=== PATIENT | female | born 1990 | race Caucasian/White ===

== ENCOUNTER 2020-05-27 21:43 | Inpatient (IN) ==
[2020-05-27] MEDS ORDERED: LACTATED RINGER'S 500 ML IV ONE (22:20)
[2020-05-27] MEDS ORDERED: METOCLOPRAMIDE HCL INJ 5 MG/ML 2 ML VIAL IV STA (22:20)
--- NOTE | 2020-05-27 22:37 | Obstetrical Progress Note ---
Date of Service May 27, 2020 Assessment & Plan (1) : 30 y/o G1 at 40 3/7 wga presenting for r/o PET -initial BP was 150 however have been normotensive otherwise. Will get PET labs and give IVF/reglan, too soon for more tylenol -cat 1 tracing currently -reassess following return of labs Subjective 30 y/o G1 at 40 3/7 wga w/ JANIS 05/24 by first trimester US who presents w/ c/o of MAK and blurry vision. Reports having blurry vision that began around 230pm, subsequently began having headache that feels similar to migraines about 1 hour later. Took 2 extra strength tylenol this afternoon and around 730 this evening, but is still w/o relief. Normally HAs improve with tylenol. Denies CP, SOB, RUQ/epigastric pain. +FM and intermittent tightening, no LOF or VB. Had little bit of mucous discharge yesterday but had cervix checked the day before and none since. Notes that she has been drinking gatorade and propel a lot throughout the day. Had 1 documented mild range BP on the day that she was seen in clinic w/ COVID precautions and normal repeat. BPs have been normal in otherwise. Pt states she checked her BP after MAK episode a few weeks ago and it was elevated but when she was seen in clinic the day after it was 130s/80s PNI: 1. COVID+ 04/19, now >20 days out 2. 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 4. GBS+ Physical Exam Constitutional: WD/WN, vitals as above no acute distress Respiratory: normal respiratory effort; no respiratory distress and no labored breathing Gastrointestinal (Abdomen): Percussion/Palpation: abdomen soft; abdomen nontender and no guarding Genitourinary: Manual OB Exam: + cervical dilation (2.5), + cervical effacement 70% and + station -2 OB Exam Monitor Tracing: + external FHT monitor used, + external uterine monitor used (q9min apart) and + category I (145/mod/+accel/-decel) Results & Data ([facility]) Vital Signs (Past 12 Hours) Vital Signs Temp Pulse Resp BP 05/27/20 22:19 90 136/78 05/27/20 22:04 99.9 F H 106 H 18 125/81 05/27/20 21:57 99.9 F H 111 H 18 152/86 H PG Care Time/CCT Total # of Minutes Spent Total Time Spent with Patient: Total time spent is greater than 50% in coordination of care (as documented) at patient's floor/unit and/or counseling patient: Coding Level of Care Code None Diagnoses Z34.90
[2020-05-27 23:08] LABS: Hematocrit (blood only) 36.3 % (37-47); Hemoglobin 11.6 g/dL (12.0-16.0); Mean Corpuscular Hemoglobin 25.8 pg (25-34); Mean Corpuscular Volume 80.7 fL (80-100); Mean Platelet Volume 10.5 fL (7.4-10.4); Platelet Count 216 K/uL (130-400); RDW Coefficient of Variation 15.8 % (11.5-14.5); RDW Standard Deviation 46.1 fL (36.4-46.3); White Blood Count 10.59 K/uL (4.8-10.8)
[2020-05-27 23:21] LABS: Total Protein Urine Random < 5.0 mg/dl (0-11.9)
[2020-05-27 23:28] LABS: Albumin Level 2.6 gm/dl (3.4-5.0); BUN Creatinine Ratio 10.1 (10-20); Creatinine Clr Calc Pharmacy 128.5 ml/min; Est GFR (African American) 127.8; Est GFR (Non-African American) 110.3; Potassium 3.6 mmol/L (3.5-5.1)
[2020-05-27 23:31] LABS: Albumin Globulin Ratio 0.6 (0.9-2); Bilirubin,Total 0.2 mg/dl (0.2-1); Globulin 4.5 gm/dl (2.5-4.0); Total Protein 7.1 gm/dl (6.4-8.2)
[2020-05-28] MEDS ORDERED: OXYTOCIN 30 UNITS/500 ML BAG IV PRN ×3 (00:02→18:14)
--- NOTE | 2020-05-28 00:19 | History & Physical Report ---
Date of Service May 28, 2020 Assessment & Plan (1) : 30 y/o G1 at 40 4/7 wga presenting with intermittently elevated BPs, 40+ wks. Given GA and elevations, recommend IOL at this time. 1. VSS, normal to intermittent mild range BPs, continue to monitor. 2. Fetus cat 1 3. IOL - will begin with oxytocin 4. GBS+, clindamycin sensitive 5. Epidural PRN History of Present Illness Primary Care Provider: NO PCP 30 y/o G1 at 40 4/7 wga w/ JANIS 05/24/20 by 1st [facility] who is admitted for IOL. Initially presented due to MAK and blurry vision. No other s/s PET; +FM; denies ctx, LOF, VB. PET labs were obtained and wnl including UPC. Reglan and IVF were administered and MAK and blurry vision resolved. 1st BP on arrival to L&D after sitting for 5-10 min was 150 and normalized after, however was noted to have a few 140s with normals after. Pt also notes that she had an episode of a MAK last week where she had BP checked and said it was in the 150s. Does not meet criteria for gHTN at this point, but given 40+ wks and intermittently elevated BPs, discussed and recommended IOL. Pt amenable to plan PNI: 1. COVID+ 04/19, now >20 days out 2. 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 4. GBS+ Past [employer] Hx: G1 Menarche 14, periods regular q30+ days no hx STIs, no hx abnl paps Allergies Allergy/AdvReac Type Severity Reaction Status Date / Time Penicillins Allergy unknown Verified 05/25/20 15:43 Home Medications Medication Instructions Recorded Confirmed Type prenat.vits,kenan,[id number] 1 tab PO DAILY 11/11/19 05/27/20 History Patient History Medical History Chicken pox Encounter for anatomic survey Surgical History S/P wisdom tooth extraction Family History Father Aortic aneurysm Mother Hypertension Sister Heart murmur Social History Smoking Status: Never smoker Hx Alcohol Use: No Hx Substance Use: No Preferred Language: Polish Communication Ability: Effective Beliefs That Will Affect Care: None marital status: marital status details: Spouse - Tam (28) [phone] Current Living Situation: Spouse Current Living Situation Comment: lives with spouse, 1 dog. current occupational status: employed current occupation: teacher at [employer] Other Information That Helps Us Care for You: No Feels Safe at Home: Yes Safety Concerns: Feels Safe At This Time Assistive Devices: None Physical Exam Constitutional: WD/WN, vitals as above no acute distress Respiratory: normal respiratory effort; no respiratory distress and no labored breathing Gastrointestinal (Abdomen): Percussion/Palpation: abdomen soft; abdomen nontender and no guarding Genitourinary: OB Exam Abdomen: + vertex (by suture, confirmed by BSUS) and + estimated weight (7-8lb) Manual OB Exam: + cervical dilation (2.5), + cervical effacement 70% and + station -2 OB Exam Monitor Tracing: + external FHT monitor used, + external uterine monitor used (q9min apart) and + category I (145/mod/+accel/-decel) Results & Data ([facility]) Vital Signs (Past 12 Hours) Vital Signs Temp Pulse Resp BP 05/27/20 23:49 102 H 137/87 05/27/20 23:34 87 134/75 05/27/20 23:19 85 130/77 05/27/20 23:04 95 H 142/85 H 05/27/20 22:50 112 H 140/84 05/27/20 22:34 97 H 124/82 05/27/20 22:19 90 136/78 05/27/20 22:04 99.9 F H 106 H 18 125/81 05/27/20 21:57 99.9 F H 111 H 18 152/86 H Laboratory Results OB Labs: Blood Type O Negative 11/13/19 Antibody Screen NEGATIVE 03/01/20 Hemoglobin 11.4 g/dL (12.0-16.0) L 03/01/20 Hematocrit 35.1 % (37-47) L 03/01/20 Mean Corpuscular Volume 84.7 fL (80-100) 11/13/19 Platelet Count 269 K/uL (130-400) 11/13/19 Varicella-Zoster IgG Antibody 715.20 INDEX 03/26/19 Rubella IgG Antibody Immune (Immune) 11/13/19 Rapid Plasma Reagin Nonreactive (Nonreactive) 11/13/19 Hepatitis B Surface Antigen Neg (Neg) 11/13/19 HIV (1&2) Ab and P24 Ag, 4th Gener Neg (Neg) 11/13/19 Glucose 1 Hour 50 gm Load 125 mg/dl (70-130) 03/01/20 OB Optional Labs: Chlamydia trachomatis RNA NOT DETECTED (NOT DETECTED) 11/13/19 Neisseria gonorrhoeae RNA NOT DETECTED (NOT DETECTED) 11/13/19 Thyroid Stimulating Hormone (TSH) 1.950 uIu/ml (0.300-4.500) 03/26/19 Labs Reviewed: low risk panorama declines afp cf/sma neg GBS+, clindamycin sensitive COVID+ 04/1905/27/20 05/27/20 05/27/20 Range/Units 22:37 22:37 22:30 WBC 10.59 (4.8-10.8) K/uL RBC 4.50 (4.2-5.4) M/uL Hgb 11.6 L (12.0-16.0) g/dL Hct 36.3 L (37-47) % MCV 80.7 (80-100) fL MCH 25.8 (25-34) pg MCHC 32.0 (32-36) g/dL RDW Std Deviation 46.1 (36.4-46.3) fL RDW Coeff of [place] 15.8 H (11.5-14.5) % Plt Count 216 (130-400) K/uL MPV 10.5 H (7.4-10.4) fL Sodium 138 (136-145) mmol/L Potassium 3.6 (3.5-5.1) mmol/L Chloride 107 (98-107) mmol/L Carbon Dioxide 22 (21-32) mmol/L Anion Gap 9.0 (3-11) BUN 8 (7-18) mg/dl Creatinine 0.74 (0.6-1.2) mg/dl Est Cr Clr Drug Dosing 128.5 ml/min Est GFR ( Amer) 127.8 Est GFR (Non-Af Amer) 110.3 BUN/Creatinine Ratio 10.1 (10-20) Glucose 87 (70-99) mg/dl Calcium 9.0 (8.5-10.1) mg/dl Total Bilirubin 0.2 (0.2-1) mg/dl AST 20 (15-37) U/L ALT 20 (12-78) U/L Alkaline Phosphatase 139 H (45-117) U/L Total Protein 7.1 (6.4-8.2) gm/dl Albumin 2.6 L (3.4-5.0) gm/dl Globulin 4.5 H (2.5-4.0) gm/dl Albumin/Globulin Ratio 0.6 L (0.9-2) Ur Random Creatinine 38.0 mg/dl U Random Total Protein < 5.0 (0-11.9) mg/dl Protein/Creatinin Ratio TNP Diagnostic Findings Posterior placenta Code Status & VTE Plan VTE Prophylaxis Plan VTE Prophylaxis will be ordered: Yes Coding Level of Care Code None Diagnoses Z34.90
[2020-05-28] MEDS: CLINDAMYCIN 900 MG in DEXTROSE 5% 50 ML IV SCH ×2 (00:22→08:25)
[2020-05-28] MEDS: LACTATED RINGER'S 1,000 ML IV PRN ×3 (04:05→15:16)
--- NOTE | 2020-05-28 06:02 | Labor Progress Brief Note ---
Date of Service May 28, 2020 Subjective Resting comfortably Assessment & Plan (1) : 30 y/o G1 at 40 4/7 wga presenting with intermittently elevated BPs, 40+ wks. Given GA and elevations, recommend IOL at this time. 1. VSS, BPs normalized 2. Fetus cat 1 3. IOL - pit at 16, continue to titrate. Pt still comfortable, consider arom when more uncomfortable 4. GBS+, clindamycin sensitive 5. Epidural PRN Admission and Anticipated Discharge Date Admission Date: May 28, 2020 Physical Exam Constitutional: WD/WN, vitals as above no acute distress Genitourinary: Manual OB Exam: + cervical dilation (2.5), + cervical effacement 70% and + station -2 OB Exam Monitor Tracing: + external FHT monitor used, + external uterine monitor used (q9min apart) and + category I (135/mod/+accel/-decel) Results & Data ([facility]) Vital Signs (Past 12 Hours) Vital Signs Temp Pulse Resp BP 05/28/20 05:30 98.4 F 85 18 129/82 05/28/20 04:29 81 18 125/72 05/28/20 03:32 89 18 129/81 05/28/20 02:30 88 18 128/70 05/28/20 01:30 98.4 F 87 18 120/67 05/28/20 00:29 101 H 18 133/84 05/27/20 23:49 102 H 137/87 05/27/20 23:34 87 134/75 05/27/20 23:19 85 130/77 05/27/20 23:04 95 H 142/85 H 05/27/20 22:50 112 H 140/84 05/27/20 22:34 97 H 124/82 05/27/20 22:19 90 136/78 05/27/20 22:04 99.9 F H 106 H 18 125/81 05/27/20 21:57 99.9 F H 111 H 18 152/86 H Coding Level of Care Code None Diagnoses Z34.90
[2020-05-28] MEDS ORDERED: BUPIVACAINE 0.25% 30 ML VIAL ONE ×2 (07:53→14:27)
[2020-05-28] MEDS ORDERED: SODIUM CHLORIDE 0.9% INJ 10 ML VIAL ONE (07:53)
[2020-05-28] MEDS ORDERED: ePHEDrine sulfate 50 MG/ML AMP ONE (07:53)
[2020-05-28] MEDS ORDERED: fentaNYL 2MCG/ML ROPIVACAINE 1.25MG/ML 100 ML BAG EPI ONE (07:54)
[2020-05-28] MEDS ORDERED: fentaNYL citrate 100 MCG/2 ML VIAL ONE (07:54)
--- NOTE | 2020-05-28 08:39 | Anesthesiology Consultation ---
Date of Service May 28, 2020 Assessment & Plan Chart Review Chart Review: Acceptable Risk for Labor Epidural Consults Requested none History Height/Weight Height: 5 ft 5 in Weight: 94.347 kg Allergies Allergy/AdvReac Type Severity Reaction Status Date / Time Penicillins Allergy unknown Verified 05/25/20 15:43 Medications Home Medications Medication Instructions Recorded Confirmed Last Taken prenat.vits,kenan,btm-[id number] 1 tab PO DAILY 11/11/19 05/27/20 05/27/20 Active Medications Generic Name Dose Route Start Last Admin Trade Name Freq PRN Reason Stop Dose Admin Lactated Ringer's 1,000 mls @ 125 mls/hr 05/28/20 00:02 05/28/20 08:25 Lr IV 05/30/20 00:01 0 mls/hr .Q8H PRN Infusion L&D Protocol Protocol Oxytocin 30 units in 500 mls @ 18 mls/hr 05/28/20 00:02 05/28/20 07:10 Pitocin IV 05/30/20 00:01 1.08 units/hr .Q24H PRN 18 mls/hr Labor Induction/Augmentation Titration Protocol 1.08 UNITS/HR Clindamycin Phosphate 900 mg/ 56 mls @ 112 mls/hr 05/28/20 00:00 05/28/20 08:25 Dextrose IV 06/07/20 00:00 112 mls/hr Q8H KELLY Administration Past Medical History Medical History Chicken pox Encounter for anatomic survey Past Family History Family History Father Aortic aneurysm Mother Hypertension Sister Heart murmur Past Surgical History Surgical History S/P wisdom tooth extraction Social History Smoking Status: Never smoker Hx Alcohol Use: No Hx Substance Use: No Physical Exam Vital Signs Last Vital Signs Temp 36.9 C 05/28/20 07:05 Pulse 82 05/28/20 08:37 Resp 20 05/28/20 07:05 BP 120/65 05/28/20 08:36 Pulse Ox 99 05/28/20 08:37 Testing Laboratory Results 05/27/20 22:37 05/27/20 22:37
[2020-05-28] MEDS ORDERED: ePHEDrine sulfate 50 MG/ML AMP IV PRN (08:41)
[2020-05-28] MEDS ORDERED: fentaNYL 2MCG/ML ROPIVACAINE 1.25MG/ML 100 ML BAG EPI PRN (08:41)
[2020-05-28] MEDS ORDERED: diphenhydrAMINE 50 MG/ML VIAL IV PRN (08:41)
[2020-05-28] MEDS ORDERED: NALOXONE HCL 1 MG in SODIUM CHLORIDE 0.9% 1000ML 1,000 ML IV PRN (08:41)
[2020-05-28] MEDS ORDERED: NALOXONE HCL 0.4 MG/1 ML VIAL/CARP IV PRN (08:41)
[2020-05-28] MEDS ORDERED: ONDANSETRON INJ 2 MG/ML 2 ML VIAL IV PRN (08:41)
[2020-05-28] MEDS ORDERED: ceFAZolin 2000MG 2,000 MG/15 ML SYR IV SCH (10:00)
--- NOTE | 2020-05-28 13:20 | Labor Progress Brief Note ---
Date of Service May 28, 2020 Subjective Reason For Note: Routine Evaluation pt with urge to push, 10cm per nurse Assessment & Plan (1) Encounter for induction of labor: (2) Gestational hypertension: (3) Group beta Strep positive: cont 2nd stage. pt aware from earlier meeting today that i was taking over care and that dr. gill would be covering as well. Admission and Anticipated Discharge Date Admission Date: May 28, 2020 Physical Exam Constitutional: WD/WN, vitals as above Genitourinary: Manual OB Exam: + cervical dilation (10), + cervical effacement 100% and + station + 1 OB Exam Monitor Tracing: + external FHT monitor used (140 mod variability, variables with ctx and pushing. good effort), + external uterine monitor used (q2-3), + normal FHT variability and + variable decelerations Results & Data ([facility]) Vital Signs (Past 12 Hours) Vital Signs Temp Pulse Resp BP Pulse Ox 05/28/20 13:12 75 100 05/28/20 13:07 75 141/66 H 100 05/28/20 13:06 114 H 90 05/28/20 13:02 76 99 05/28/20 12:59 102 H 20 90 05/28/20 12:57 103 H 100 05/28/20 12:54 92 H 153/71 H 05/28/20 12:52 89 100 05/28/20 12:47 87 100 05/28/20 12:44 98.8 F 18 05/28/20 12:42 75 100 05/28/20 12:39 76 134/70 05/28/20 12:37 81 100 05/28/20 12:32 71 100 05/28/20 12:27 80 100 05/28/20 12:22 73 142/82 H 100 05/28/20 12:17 62 99 05/28/20 12:12 68 100 05/28/20 12:08 61 140/78 05/28/20 12:07 68 100 05/28/20 12:02 64 99 05/28/20 12:00 16 05/28/20 11:57 65 98 05/28/20 11:54 69 137/63 05/28/20 11:52 76 100 05/28/20 11:47 76 99 05/28/20 11:42 73 99 12/18/20 11:38 71 132/71 12/18/20 11:37 71 100 12/18/20 11:32 77 100 12/18/20 11:29 20 12/18/20 11:27 68 100 12/18/20 11:24 74 135/64 12/18/20 11:22 79 100 12/18/20 11:17 72 99 12/18/20 11:12 75 99 12/18/20 11:08 92 H 131/79 12/18/20 11:07 82 99 12/18/20 11:02 84 99 12/18/20 10:59 99.1 F 20 18/20 10:57 80 99 12/18/20 10:52 86 144/89 H 100 12/18/20 10:47 77 99 /18/20 10:42 73 98 12/18/20 10:37 82 150/86 H 99 /18/20 10:32 76 100 12/18/20 10:29 20 18/20 10:27 82 98 12/18/20 10:22 83 147/84 H 99 18/20 10:17 76 99 12/18/20 10:12 78 100 12/18/20 10:08 76 146/80 H 18/20 10:07 74 100 12/18/20 10:02 71 100 18/20 09:59 20 18/20 09:57 70 100 18/20 09:53 71 148/83 H 18/20 09:52 71 100 18/20 09:49 76 93 12/18/20 09:47 70 100 18/20 09:42 69 99 12/18/20 09:39 83 130/69 12/18/20 09:37 68 100 12/18/20 09:32 66 99 12/18/20 09:27 81 99 1218/20 09:22 80 116/60 98 12/18/20 09:17 70 97 1218/20 09:12 66 98 12/18/20 09:07 73 115/56 L 97 18/20 09:02 67 98 12/18/20 08:59 20 18/20 08:57 82 99 1218/20 08:55 98.6 F 20 05/28/20 08:52 77 117/57 L 98 20 08:50 93 H 123/68 18/20 08:48 87 124/68 20 08:47 92 H 100 20 08:46 80 121/64 18/20 08:44 85 125/68 18/20 08:42 81 126/71 100 18/20 08:40 82 20 121/63 18/20 08:38 78 120/62 20 08:37 82 99 20 08:36 81 120/65 18/20 08:34 85 114/62 18/20 08:32 83 124/68 99 20 08:30 85 20 127/67 20 08:28 81 123/65 05/28/20 08:27 102 H 100 05/28/20 08:26 94 H 141/88 H 05/28/20 08:24 90 140/85 05/28/20 08:22 97 H 99 05/28/20 08:17 104 H 100 05/28/20 08:12 94 H 100 05/28/20 08:07 90 100 05/28/20 08:02 91 H 100 05/28/20 07:57 89 100 05/28/20 07:52 98 H 151/93 H 99 05/28/20 07:31 108 H 142/94 H 05/28/20 07:05 98.4 F 20 05/28/20 06:35 77 129/83 05/28/20 05:30 98.4 F 85 18 129/82 20 04:29 81 18 125/72 20 03:32 89 18 129/81 20 02:30 88 18 128/70 20 01:30 98.4 F 87 18 120/67 Coding Level of Care Code None Diagnoses Encounter for induction of labor Z34.90 Gestational hypertension O13.9 Group beta Strep positive B95.1
--- NOTE | 2020-05-28 17:15 | Labor Progress Brief Note ---
Date of Service May 28, 2020 Subjective Reason For Note: Requested By RN pt pushing and complaining about exhaustion. only active pushing x 2hr 45min, had taken a break. she has back pain. on arrival to room she is pushing in knee chest. Assessment & Plan (1) Encounter for induction of labor: (2) Gestational hypertension: (3) Group beta Strep positive: pushing, will eval progress when comes out of knee chest, only pushed twice so far in that position. fhts categ 2. Admission and Anticipated Discharge Date Admission Date: May 28, 2020 Physical Exam Constitutional: WD/WN, vitals as above Genitourinary: OB Exam Monitor Tracing: + external FHT monitor used (145), + external uterine monitor used (q2-3), + category II, + normal FHT variability and + variable decelerations Results & Data ([facility]) Vital Signs (Past 12 Hours) Vital Signs Temp Pulse Resp BP Pulse Ox 05/28/20 17:11 139 H 87 L 05/28/20 17:08 132 H 100 05/28/20 17:03 99 H 80 L 05/28/20 16:58 98 H 100 05/28/20 16:57 100 H 81 L 05/28/20 16:54 83 123/60 05/28/20 16:53 74 111/55 L 99 05/28/20 16:48 78 99 05/28/20 16:43 75 100 05/28/20 16:39 153 H 143/66 H 05/28/20 16:38 118 H 93 05/28/20 16:36 96 H 81 L 05/28/20 16:33 80 98 05/28/20 16:28 86 94 05/28/20 16:27 83 85 L 05/28/20 16:25 92 H 125/80 05/28/20 16:23 93 H 100 05/28/20 16:20 84 84 L 05/28/20 16:18 75 100 05/28/20 16:15 76 85 L 05/28/20 16:13 92 H 87 L 05/28/20 16:10 80 88 L 05/28/20 16:08 70 133/63 100 05/28/20 16:04 76 82 L 05/28/20 16:03 74 99 05/28/20 15:58 78 99 12/18/20 15:57 94 H 81 L 18/20 15:53 80 145/68 H 18/20 15:52 70 83 L 1218/20 15:50 81 83 L 18/20 15:47 71 86 L 18/20 15:43 113 H 87 L 18/20 15:42 91 H 98 18/20 15:39 71 137/74 1218/20 15:37 76 100 18/20 15:32 70 98 18/20 15:27 66 100 1218/20 15:24 67 132/69 1218/20 15:22 73 100 18/20 15:17 67 100 18/20 15:12 75 100 18/20 15:07 72 141/74 H 100 18/20 15:02 69 97 18/20 15:00 20 05/28/20 14:57 77 100 18/20 14:53 70 134/71 18/20 14:52 69 99 18/20 14:47 69 96 18/20 14:42 67 100 18/20 14:37 81 124/68 97 18/20 14:33 71 125/66 18/20 14:32 70 97 18/20 14:29 123 H 20 130/73 18/20 14:27 84 100 18/20 14:22 123 H 125/68 100 1218/20 14:17 91 H 100 18/20 14:16 90 84 L 18/20 14:12 94 H 83 L 18/20 14:10 95 H 79 L 18/20 14:07 89 126/68 99 18/20 14:03 104 H 93 18/20 14:02 88 99 18/20 13:59 20 18/20 13:57 96 H 100 18/20 13:52 106 H 132/69 98 1218/20 13:51 103 H 88 L 1218/20 13:47 108 H 97 18/20 13:43 120 H 90 18/20 13:42 92 H 100 1218/20 13:37 93 H 132/72 99 18/20 13:36 112 H 83 L 12/18/20 13:32 80 99 05/28/20 13:29 20 05/28/20 13:27 138 H 100 05/28/20 13:24 111 H 85 L 05/28/20 13:23 73 132/63 20 13:22 106 H 100 05/28/20 13:17 109 H 87 L 05/28/20 13:12 75 100 05/28/20 13:07 75 141/66 H 100 05/28/20 13:06 114 H 90 05/28/20 13:02 76 99 05/28/20 12:59 102 H 20 90 05/28/20 12:57 103 H 100 05/28/20 12:54 92 H 153/71 H 05/28/20 12:52 89 100 05/28/20 12:47 87 100 05/28/20 12:44 98.8 F 18 05/28/20 12:42 75 100 05/28/20 12:39 76 134/70 05/28/20 12:37 81 100 05/28/20 12:32 71 100 05/28/20 12:27 80 100 05/28/20 12:22 73 142/82 H 100 05/28/20 12:17 62 99 05/28/20 12:12 68 100 05/28/20 12:08 61 140/78 05/28/20 12:07 68 100 05/28/20 12:02 64 99 05/28/20 12:00 16 05/28/20 11:57 65 98 05/28/20 11:54 69 137/63 05/28/20 11:52 76 100 20 11:47 76 99 20 11:42 73 99 20 11:38 71 132/71 20 11:37 71 100 20 11:32 77 100 20 11:29 20 20 11:27 68 100 1820 11:24 74 135/64 18/20 11:22 79 100 05/28/20 11:17 72 99 18/20 11:12 75 99 18 11:08 92 H 131/79 05/28/20 11:07 82 99 05/28/20 11:02 84 99 12/18/20 10:59 99.1 F 20 12/18/20 10:57 80 99 12/18/20 10:52 86 144/89 H 100 12/18/20 10:47 77 99 12/18/20 10:42 73 98 12/18/20 10:37 82 150/86 H 99 12/18/20 10:32 76 100 12/18/20 10:29 20 12/18/20 10:27 82 98 12/18/20 10:22 83 147/84 H 99 12/18/20 10:17 76 99 12/18/20 10:12 78 100 12/18/20 10:08 76 146/80 H 12/18/20 10:07 74 100 12/18/20 10:02 71 100 12/18/20 09:59 20 12/18/20 09:57 70 100 12/18/20 09:53 71 148/83 H 12/18/20 09:52 71 100 12/18/20 09:49 76 93 12/18/20 09:47 70 100 12/18/20 09:42 69 99 12/18/20 09:39 83 130/69 12/18/20 09:37 68 100 12/18/20 09:32 66 99 12/18/20 09:27 81 99 12/18/20 09:22 80 116/60 98 12/18/20 09:17 70 97 12/18/20 09:12 66 98 12/18/20 09:07 73 115/56 L 97 12/18/20 09:02 67 98 12/18/20 08:59 20 12/18/20 08:57 82 99 12/18/20 08:55 98.6 F 20 12/18/20 08:52 77 117/57 L 98 12/18/20 08:50 93 H 123/68 12/18/20 08:48 87 124/68 12/18/20 08:47 92 H 100 12/18/20 08:46 80 121/64 12/18/20 08:44 85 125/68 12/18/20 08:42 81 126/71 100 12/18/20 08:40 82 20 121/63 12/18/20 08:38 78 120/62 12/18/20 08:37 82 99 12/18/20 08:36 81 120/65 12/18/20 08:34 85 114/62 05/28/20 08:32 83 124/68 99 05/28/20 08:30 85 20 127/67 05/28/20 08:28 81 123/65 05/28/20 08:27 102 H 100 05/28/20 08:26 94 H 141/88 H 05/28/20 08:24 90 140/85 05/28/20 08:22 97 H 99 05/28/20 08:17 104 H 100 05/28/20 08:12 94 H 100 05/28/20 08:07 90 100 05/28/20 08:02 91 H 100 05/28/20 07:57 89 100 05/28/20 07:52 98 H 151/93 H 99 05/28/20 07:31 108 H 142/94 H 05/28/20 07:05 98.4 F 20 05/28/20 06:35 77 129/83 05/28/20 05:30 98.4 F 85 18 129/82 Coding Level of Care Code None Diagnoses Encounter for induction of labor Z34.90 Gestational hypertension O13.9 Group beta Strep positive B95.1
[2020-05-28] MEDS ORDERED: LIDOCAINE HCL 1% 20 ML VIAL ONE (17:42)
--- NOTE | 2020-05-28 18:11 | Delivery Summary ---
Vaginal Delivery Summary Date of Service May 28, 2020 The patient dilated to complete and pushed for about 3hours and then requested assistance due to exhaustion. SVE C/C/+3. Informed consent obtained as well as risks/benefits/complications reviewed. Patient and partner desired to proceed. Could not pass red rubber catheter. Kiwi vacuum applied and over 2 pulls and one pop off over 2 contractions a viable female infant Apgars 8 and 9 via Vacuum assisted vaginal delivery over 2nd degree perineal laceration. Loose nuchal cord x 1 delivered through rapidly with shoulders and body. Mouth and nose bulb suctioned and infant was vigorous and crying at . Cord clamped at 30 seconds of life and infant to maternal abdomen where the cord was then doubly clamped and cut. Brisk bleeding noted and discovered to be 2 large pumping vessels directly beneath clitoris. Two interrupted sutures of 3-0 vicryl placed and hemostasis at that area improved. Red rubber catheter placed and moved easily within urethra with no evidence of obstructing sutures and bladder drained for about 200cc. Second degree perineal laceration repaired in multiple layers with 3-0 vicryl. Placenta delivered spontaneously and intact, three- vessel cord. Hemostasis achieved with dilute pitocin and uterine massage. Cervix and sulci intact. Of note patient had bleeding from vaginal tissues durind pushing stage as well. EBL 600 cc(bulk of this from the lacerations). Mother and baby stable recovery. [facility] Vaginal Delivery Charge Vaginal Delivery Codes: 62068 global code for the antepartum, delivery, and post-
[2020-05-28] MEDS ORDERED: oxyCODONE/ACETAMINOPHEN 5mg/325mg TAB PO PRN (18:14)
[2020-05-28] MEDS ORDERED: ACETAMINOPHEN 325 MG TAB PO PRN (18:14)
[2020-05-28] MEDS ORDERED: OXYTOCIN 20 UNITS in LACTATED RINGER'S 1,000 ML IV SCH (19:00)
--- NOTE | 2020-05-28 19:05 | Anesthesia Procedure Note ---
Date of Service May 28, 2020 Anesthesia Post Epidural Note Vital Signs Vital Signs: Temp Pulse Resp BP Pulse Ox 36.5 C 86 18 119/71 100 05/28/20 18:00 05/28/20 19:02 05/28/20 18:47 05/28/20 19:02 05/28/20 18:18 Pain Intensity Bilateral Abdomen: Pain Intensity: 0 Notes Mental Status: alert / awake / arousable Nausea / Vomiting: adequately controlled Pain: adequately controlled Airway Patency, RR, SpO2: stable & adequate BP & HR: stable & adequate Hydration State: stable & adequate Neuraxial Anesthesia: was administered and sensory block is resolving Anesthetic Complications: no major complications apparent and Pt Satisfied with anesthetic care Epidural: Removed without complications and With tip intact
[2020-05-28] MEDS ORDERED: DIPHTHERIA/TETANUS/PERTUSSIS 0.5 ML SYR/VIAL IM ONE (19:24)
[2020-05-28] MEDS ORDERED: SUPERCREAM 0.870% 15 GM JAR EXT PRN (19:24)
[2020-05-28] MEDS ORDERED: BENZOCAINE 20% AER SPR 82.5 GM CAN EXT PRN (19:24)
[2020-05-28] MEDS ORDERED: HYDROCORTISONE ACETATE 25 MG SUPP PR PRN (19:24)
[2020-05-28] MEDS ORDERED: LACTATED RINGER'S 1,000 ML IV SCH (19:24)
[2020-05-28] MEDS: IBUPROFEN 600 MG TAB PO PRN ×2 (20:19→23:56)
[2020-05-28] MEDS: DOCUSATE SODIUM 100 MG CAP PO SCH (20:19)
[2020-05-29] MEDS: IBUPROFEN 600 MG TAB PO PRN ×5 (04:37→23:08)
--- NOTE | 2020-05-29 05:29 | Obstetrical Progress Note ---
Date of Service <Camilo Domínguez MD - Last Filed: 05/29/20 07:07> May 29, 2020 Assessment & Plan <Camilo Domínguez MD - Last Filed: 05/29/20 07:07> (1) state: 30 y/o s/p on 05/28/20 at 40w4d, PPD1. O neg. Rubella immune. - Doing well. Meeting postapartum milestones, ambulating, voiding, eating. Pain is minimal. - Some burning w/ urination 2/2 2nd degree laceration. Routine care. - Bottlefeeding. - Blood type is O neg. Baby's blood type is A neg and tested FADI positive. Rhogam not indicated. - Continue routine care. - Tentative dispo tomorrow. (2) Anemia: - 600 cc blood loss during yesterday, mainly from 2nd degree laceration. laceration repaired. - Hb 11.6->7.7. Asymptomatic. Will continue to monitor. (3) Gestational hypertension: - Intermittent headache and blurry vision 1-2 wks prior to delivery. Also had intermittent mildly elevated BPs (150 systolic) days prior to and during day of admission. - No elevated BPs since delivery yesterday. AM BP 131/77. - No recurrence of symptoms (headache, blurry vision) since intial presentation during labor admit. Denies current MAK, vision changes, RUQ pain, CP, SOB. - Continue monitoring BPs. No medication tx at this time. (4) Group beta Strep positive: - s/p clindamycin tx Subjective <Camilo Domínguez MD - Last Filed: 05/29/20 07:07> Ambulation: ambulating normally Voiding: no voiding problems Passing Gas:: Yes Diet Tolerance:: regular diet Lochia:: Small Feeding Type:: bottle feeding (Similac) Current Pain Level(1-10): 2 Some burning w/ urination, attributes to laceration during delivery. No other complaints. Pain is controlled w/ ibuprofen. Review of Systems Denies fever, chills, sweats Denies shortness of breath, chest pain, palpitations. Denies breast pain. Denies headache or changes in vision or dizziness. Denies nausea/vomiting. Denies numbness, tingling, weakness. Physical Exam <Camilo Domínguez MD - Last Filed: 05/29/20 07:07> General: Alert, oriented. No acute distress. Cardiac: Regular rate and rhythm, no murmurs/rubs/gallops. Respiratory: Clear to auscultation bilaterally, no wheezes/rales/rhonchi. No respiratory distress. Abdomen: , soft, nontender. Uterus: Uterine fundus firm, palpable 2 cm below umbilicus. Lower Extremities: Trace LE edema. No deep calf pain. Ale's negative bilaterally. Results & Data ([facility]) <Camilo Domínguez MD - Last Filed: 05/29/20 07:07> Vital Signs (Past 12 Hours) Vital Signs Temp Pulse Resp BP Pulse Ox 05/29/20 04:30 36.9 C 76 18 131/77 05/28/20 23:50 37.4 C 89 17 118/73 98 05/28/20 21:10 37.0 C 93 H 18 114/72 97 05/28/20 20:17 103 H 116/70 05/28/20 20:02 98 H 119/75 05/28/20 19:47 104 H 110/72 05/28/20 19:32 104 H 120/72 05/28/20 19:17 100 H 121/71 05/28/20 19:02 86 119/71 05/28/20 18:47 86 18 116/70 05/28/20 18:32 98 H 18 108/71 05/28/20 18:18 86 100 05/28/20 18:15 90 18 110/62 05/28/20 18:13 90 100 05/28/20 18:12 90 108/63 05/28/20 18:09 88 109/62 05/28/20 18:08 90 100 05/28/20 18:06 83 109/59 L 05/28/20 18:04 90 110/63 05/28/20 18:03 87 100 05/28/20 18:00 36.5 C 100 H 18 96/56 L 05/28/20 17:58 108 H 100 05/28/20 17:57 93 H 89/55 L 05/28/20 17:54 90 81/45 L 05/28/20 17:53 82 75/40 L 98 05/28/20 17:50 123 H 83 L 05/28/20 17:48 151 H 100 05/28/20 17:43 156 H 99 05/28/20 17:38 113 H 99 05/28/20 17:37 162 H 115/64 05/28/20 17:35 121 H 87 L 05/28/20 17:33 120 H 90 05/28/20 17:30 98 H 87 L 05/28/20 17:28 88 99 Medications Administered <Rosio Phillips MD, FACOG - Last Filed: 05/29/20 07:46> Co-Signing Physician Notes Resident Physician Supervision Note: I was present with Dr. Domínguez during the history and exam. I discussed the case with the resident and agree with the findings and plan as documented in the note. Any exceptions or clarifications are listed here: doing well, tired, no dizziness or lightheadedness, no ongoing bleeding, hgb reviewed with pt and noted. min well with ambulation, voiding. eating without prob. plans to bottle feed, rh neg, baby rh neg. ri. routine pp care. if symptomatic may need to consider transfusion but she is tolerating thus far and aware of need for extra iron for 6wks. Documented By: Rosio Phillips MD, FACOG Resident Activity Tracking <Camilo Domínguez MD - Last Filed: 05/29/20 07:07> Resident Involvement: Resident Care Provided Care Provided: OB Delivery
[2020-05-29 06:49] LABS: Hematocrit (blood only) 23.8 % (37-47); Hemoglobin 7.7 g/dL (12.0-16.0)
[2020-05-29] MEDS: DOCUSATE SODIUM 100 MG CAP PO SCH ×2 (08:37→20:54)
[2020-05-30] MEDS: IBUPROFEN 600 MG TAB PO PRN ×2 (06:05→11:39)
--- NOTE | 2020-05-30 08:11 | Obstetrical Progress Note ---
Date of Service May 30, 2020 Assessment & Plan (1) : meets crireria home. bp better Subjective Ambulation: ambulating normally Voiding: no voiding problems Diet Tolerance:: regular diet Lochia:: Small Feeding Type:: breast feeding Current Pain Level(1-10): 2 Physical Exam Constitutional WD/WN, vitals as above (Ext neg) Results & Data ([facility]) Vital Signs (Past 12 Hours) Vital Signs Temp Pulse Resp BP Pulse Ox 05/30/20 07:16 98.2 F 90 20 130/83 99 05/29/20 23:20 97.9 F 93 H 18 116/79
[2020-05-30] MEDS: DOCUSATE SODIUM 100 MG CAP PO SCH (08:15)
--- NOTE | 2020-05-30 08:16 | Obstetrical Progress Note ---
Date of Service note reviewed Fe for anemia May 30, 2020 Assessment & Plan Admission and Anticipated Discharge Date Admission Date: May 28, 2020 Results & Data ([facility]) Vital Signs (Past 12 Hours) Vital Signs Temp Pulse Resp BP Pulse Ox 05/30/20 07:16 98.2 F 90 20 130/83 99 05/29/20 23:20 97.9 F 93 H 18 116/79 PG Care Time/CCT Total # of Minutes Spent Total Time Spent with Patient: Total time spent is greater than 50% in coordination of care (as documented) at patient's floor/unit and/or counseling patient: Coding Level of Care Code None
--- NOTE | 2020-06-01 11:51 | Coding Query ---
ANEMIA To promote full compliance with coding requirements relating to patient care, physician participation is requested in all cases of braille coder uncertainty. Please assist us with the question(s) below: Coding Question(s): The record reflects the following clinical findings: The 05/29/20 Progress Note documents, "Anemia: - 600 cc blood loss during yesterday, mainly from 2nd degree laceration. laceration repaired. - Hb 11.6->7.7. Asymptomatic. Will continue to monitor." If these findings are indicative of anemia, please specify the known or suspected type by placing an "X" within the parenthesis (x). If other, please document type. Examples are: ( X) Acute blood loss anemia ( ) Acute Postoperative blood loss anemia ( ) Acute postoperative anemia due to dilutional fluids ( ) Chronic blood loss anemia ( ) Anemia of chronic disease ( ) Aplastic anemia ( ) Anemia due to renal disease ( ) Anemia in neoplastic disease ( ) Iron deficient anemia ( ) Anemia, unspecified or other ( ) Other: (please specify) ( ) Unable to determine Thank you Josie Leo [facility]
== END 2020-05-30 16:05 | disposition home or self-care (01) ==
LOC: OPB 21:43 → 4S1 21:44 → 4S2 05-28 20:37

== ENCOUNTER 2022-10-18 07:15 | Inpatient (IN) ==
[2022-10-18] MEDS ORDERED: LIDOCAINE 1% LOCAL 20 ML VIAL INFIL PRN (07:45)
[2022-10-18] MEDS ORDERED: OXYTOCIN 30 UNITS/500 ML BAG IV PRN ×3 (07:45→13:17)
--- NOTE | 2022-10-18 07:55 | History & Physical Report ---
Date of Service October 18, 2022 Assessment & Plan (1) Encounter for supervision of normal in multigravida, antepartum: Plan Sinai is a 32-year-old presents in labor. 1. Fetus: Cat 1 2. Labor: Active 3. GBS neg 4. Vitals: WNL History of Present Illness Primary Care Provider: Katelynn Moreno, DO Rawls is a 32-year-old presents for active labor. Denies leakage of fluid or vaginal bleeding. 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 NON-REACTIVE (NON-REACTIVE) 03/28/22 Hepatitis C Antibody Neg (Neg) 03/26/19 Hepatitis C Antibody (EIA) NON-REACTIVE (NON-REACTIVE) 03/28/22 HIV (1&2) Ab and P24 Ag, 4th Gener Neg (Neg) 11/13/19 HIV (1&2) Ag and Ab Confirmation NON-REACTIVE (NON-REACTIVE) 03/28/22 Glucose 1 Hour 50 gm Load 116 mg/dl (70-130) 07/25/22 OB Optional Labs: Chlamydia trachomatis RNA Not Detected (NotDetected) 05/01/22 Neisseria gonorrhoeae RNA Not Detected (NotDetected) 05/01/22 Thyroid Stimulating Hormone (TSH) 1.950 uIu/ml (0.300-4.500) 03/26/19 Labs Reviewed: cf/sma neg in prior - HK Declines cfdna/quad--mln Allergies Allergy/AdvReac Type Severity Reaction Status Date / Time Penicillins Allergy unknown Verified 10/17/22 16:15 Home Medications Medication Instructions Recorded Confirmed Type prenat.vits,kenan,xoo-cdss-gjwdn 1 tab PO DAILY 03/21/22 10/17/22 History escitalopram oxalate 10 mg tablet 10 mg PO DAILY 05/01/22 10/17/22 History (Lexapro) Patient History Medical History Chicken pox Encounter for anatomic survey Surgical History S/P wisdom tooth extraction Family History Father Aortic aneurysm Mother Hypertension Sister Heart murmur Social History (Updated 03/21/22 @ 09:57 by Cheyanne Salazar) Smoking Status: Never smoker Do You Dip or Chew Tobacco: No; Hx Alcohol Use: No Hx Substance Use: No Preferred Language: Moroccan Communication Ability: Effective Visual Impairment: No Limitations Hearing Ability: Normal Beliefs That Will Affect Care: None marital status: marital status details: Spouse - Tam (31) [phone] Current Living Situation: Spouse Current Living Situation Comment: lives with spouse, child, 1 dog. current occupational status: employed current occupation: teacher at [employer] Feels Safe at Home: Yes Assistive Devices: None Physical Exam Genitourinary: Manual OB Exam: + cervical dilation 5 cm, + cervical effacement 100% and + station -1 OB Exam Monitor Tracing: + external FHT monitor used, + external uterine monitor used, + category I and + normal FHT variability; no early decelerations present, no late decelerations present and no variable decelerations Coding Level of Care Code None Diagnoses Encounter for supervision of normal in multigravida, antepartum Z34.80
[2022-10-18] MEDS: LACTATED RINGER'S 1,000 ML IV PRN ×2 (08:00→10:01)
[2022-10-18 08:05] LABS: Hemoglobin 11.4 g/dl (12.0-16.0); Mean Corpuscular Hemoglobin 24.6 pg (25.0-34.0); Mean Corpuscular Hgb Conc 31.7 g/dL (32.0-36.0); Mean Corpuscular Volume 77.8 fL (80.0-100.0); Mean Platelet Volume 10.7 fL (9.4-12.4); Platelet Count 225 K/uL (130-400); RDW Coefficient of Variation 15.1 % (11.5-14.5); RDW Standard Deviation 42.1 fL (36.4-46.3); Red Blood Count 4.63 M/uL (4.20-5.40); White Blood Count 7.49 K/ul (4.8-10.8)
[2022-10-18] MEDS ORDERED: fentaNYL citrate PF 100 MCG/2 ML VIAL ONE (08:28)
[2022-10-18] MEDS ORDERED: BUPIVACAINE 0.25% PF 30 ML VIAL ONE (08:28)
[2022-10-18] MEDS ORDERED: fentaNYL 2MCG/ML ROPIVACAINE 1.25MG/ML 100 ML BAG EPI ONE (08:28)
[2022-10-18] MEDS ORDERED: SODIUM CHLORIDE 0.9% PF INJ 10 ML VIAL ONE (08:28)
[2022-10-18] MEDS ORDERED: LIDOCAINE 2%/EPINEPHRINE 1:200,000 20 ML PF ONE (08:28)
[2022-10-18] MEDS ORDERED: ePHEDrine sulfate 50 MG/ML AMP ONE (08:29)
--- NOTE | 2022-10-18 08:52 | Communication Note ---
Date of Service: October 18, 2022 Patient chart reviewed, greeted in room 425, about to get epidural placed. Admitting for labor at 5cm and with reassuring tracing (last few minutes maternal HR capture due to reposition for epidural). Anticipate .
--- NOTE | 2022-10-18 09:24 | Anesthesiology Consultation ---
Date of Service October 18, 2022 Assessment & Plan Chart Review Chart Review: Acceptable Risk for Labor Epidural Consults Requested none History Height/Weight Height: 5 ft 6 in Weight: 92.079 kg Allergies Allergy/AdvReac Type Severity Reaction Status Date / Time Penicillins Allergy unknown Verified 10/17/22 16:15 Medications Home Medications Medication Instructions Recorded Confirmed Last Taken prenat.vits,kenan,hrs-xiuo-kmyae 1 tab PO DAILY 03/21/22 10/17/22 Unknown escitalopram oxalate 10 mg tablet 10 mg PO DAILY 05/01/22 10/17/22 Unknown (Lexapro) Active Medications Generic Name Dose Route Start Last Admin Trade Name Freq PRN Reason Stop Dose Admin Lactated Ringer's 1,000 mls @ 125 mls/hr 10/18/22 07:45 10/18/22 08:45 Lr IV 10/20/22 07:44 125 mls/hr .Q8H PRN Infusion L&D Protocol Protocol Past Medical History Medical History Chicken pox Encounter for anatomic survey Past Family History Family History Father Aortic aneurysm Mother Hypertension Sister Heart murmur Past Surgical History Surgical History S/P wisdom tooth extraction Social History Smoking Status: Never smoker Do You Dip or Chew Tobacco: No Hx Alcohol Use: No Hx Substance Use: No Physical Exam Vital Signs Last Vital Signs Temp 36.5 C 10/18/22 08:13 Pulse 86 10/18/22 09:23 BP 109/65 10/18/22 09:23 Pulse Ox 96 10/18/22 09:18 Testing Laboratory Results 10/18/22 07:50
[2022-10-18] MEDS ORDERED: fentaNYL citrate PF 100 MCG/2 ML VIAL EPI PRN (09:25)
[2022-10-18] MEDS ORDERED: diphenhydrAMINE 50 MG/ML VIAL IV PRN (09:25)
[2022-10-18] MEDS ORDERED: NALOXONE HCL 1 MG in SODIUM CHLORIDE 0.9% 1000ML 1,000 ML IV PRN (09:25)
[2022-10-18] MEDS ORDERED: BUPIVACAINE 0.25% PF 30 ML VIAL EPI STA (09:25)
[2022-10-18] MEDS ORDERED: SODIUM CHLORIDE 0.9% PF INJ 10 ML VIAL EPI STA (09:25)
[2022-10-18] MEDS ORDERED: ePHEDrine sulfate 50 MG/ML AMP IV PRN (09:25)
[2022-10-18] MEDS ORDERED: ROPIVACAINE 0.5% PF 5 MG/ML 20 ML VIAL EPI PRN (09:25)
[2022-10-18] MEDS ORDERED: fentaNYL citrate PF 100 MCG/2 ML VIAL EPI STA (09:25)
[2022-10-18] MEDS ORDERED: LIDOCAINE 2%/EPINEPHRINE 1:200,000 20 ML PF EPI STA (09:25)
[2022-10-18] MEDS ORDERED: BUPIVACAINE 0.25% PF 30 ML VIAL EPI PRN (09:25)
[2022-10-18] MEDS ORDERED: fentaNYL 2MCG/ML ROPIVACAINE 1.25MG/ML 100 ML BAG EPI PRN (09:25)
[2022-10-18] MEDS ORDERED: NALBUPHINE HCL INJ 10 MG/ML AMP IV PRN (09:25)
[2022-10-18] MEDS ORDERED: NALOXONE HCL 0.4 MG/1 ML VIAL/CARP IV PRN (09:25)
[2022-10-18] MEDS ORDERED: LIDOCAINE 2% MPF LOCAL 5 ML VIAL EPI PRN (09:25)
[2022-10-18] MEDS ORDERED: SODIUM CHLORIDE 0.9% PF INJ 10 ML VIAL EPI PRN (09:25)
--- NOTE | 2022-10-18 11:19 | Labor Progress Brief Note ---
Date of Service October 18, 2022 Subjective Comfortable with epidural Assessment & Plan (1) Normal labor: Plan: Continue current mgmt Physical Exam Genitourinary: 8/100/0 Clear fluid noted, SROM either before or during exam, but no intentional AROM performed. FHT Cat 1 Results & Data Vital Signs (Past 12 Hours) Vital Signs Temp Pulse Resp BP Pulse Ox 10/18/22 11:00 18 10/18/22 11:00 18 10/18/22 11:13 77 99 10/18/22 11:08 99 10/18/22 11:08 88 10/18/22 11:08 96 H 136/91 10/18/22 11:03 79 98 10/18/22 10:58 73 98 10/18/22 10:53 74 98 10/18/22 10:52 77 137/74 10/18/22 10:48 91 H 98 10/18/22 10:43 78 99 10/18/22 10:38 76 98 10/18/22 10:37 74 119/70 10/18/22 10:33 83 98 10/18/22 10:28 76 98 10/18/22 10:23 75 96 10/18/22 10:18 76 98 10/18/22 10:13 75 98 10/18/22 10:08 80 98 10/18/22 10:07 77 18 114/67 10/18/22 10:03 84 97 10/18/22 09:58 77 98 10/18/22 09:54 78 131/76 10/18/22 09:53 77 98 10/18/22 09:48 92 H 98 10/18/22 09:43 89 96 10/18/22 09:38 88 97 10/18/22 09:37 86 116/72 10/18/22 09:33 83 97 10/18/22 09:30 88 106/59 L 10/18/22 09:28 86 108/68 97 10/18/22 09:26 86 114/70 10/18/22 09:24 89 113/74 10/18/22 09:23 97 10/18/22 09:23 84 10/18/22 09:23 86 109/65 10/18/22 09:20 83 102/60 10/18/22 09:19 82 110/62 10/18/22 09:18 82 96 10/18/22 09:17 102 H 104/55 L 10/18/22 09:13 98 H 98 10/18/22 09:14 78 94/57 L 10/18/22 09:12 100 H 109/71 10/18/22 09:10 106 H 121/81 10/18/22 09:08 97 10/18/22 09:08 93 H 10/18/22 09:08 94 H 118/75 10/18/22 09:06 92 H 120/74 10/18/22 09:04 92 H 122/78 10/18/22 09:03 93 H 98 10/18/22 09:01 90 139/87 10/18/22 08:58 91 H 98 10/18/22 08:53 103 H 99 10/18/22 08:48 94 H 98 10/18/22 08:49 93 H 145/91 H 10/18/22 08:13 97.7 F 18 L Coding Level of Care Code None Diagnoses Normal labor O80; Z37.9
[2022-10-18] MEDS ORDERED: DIPHTHERIA/TETANUS/PERTUSSIS 0.5mL SYR/VIAL (Age 7+yrs) IM ONE (13:17)
[2022-10-18] MEDS ORDERED: oxyCODONE/ACETAMINOPHEN 5mg/325mg TAB PO PRN (13:17)
[2022-10-18] MEDS ORDERED: BENZOCAINE 20% AER SPR 82.5 GM CAN EXT PRN (13:17)
[2022-10-18] MEDS ORDERED: ACETAMINOPHEN 325 MG TAB PO PRN (13:17)
[2022-10-18] MEDS ORDERED: HYDROCORTISONE ACETATE 25 MG SUPP PR PRN (13:17)
--- NOTE | 2022-10-18 14:57 | Anesthesia Procedure Note ---
Date of Service October 18, 2022 Anesthesia Post Epidural Note Vital Signs Vital Signs: Temp Pulse Resp BP Pulse Ox 36.5 C 103 H 18 131/83 98 10/18/22 08:13 10/18/22 14:49 10/18/22 12:10 10/18/22 14:49 10/18/22 12:43 Notes Mental Status: alert / awake / arousable Nausea / Vomiting: adequately controlled Pain: adequately controlled Airway Patency, RR, SpO2: stable & adequate BP & HR: stable & adequate Hydration State: stable & adequate Neuraxial Anesthesia: was administered and sensory block is resolving Anesthetic Complications: no major complications apparent and Pt Satisfied with anesthetic care Epidural: Removed without complications and With tip intact
[2022-10-18] MEDS: IBUPROFEN 600 MG TAB PO PRN ×3 (15:22→23:19)
[2022-10-18] MEDS: DOCUSATE SODIUM 100 MG CAP PO SCH (21:04)
--- NOTE | 2022-10-19 05:53 | Obstetrical Progress Note ---
Date of Service October 19, 2022 Assessment & Plan (1) Normal labor: (2) Encounter for supervision of normal in multigravida, antepartum: (3) Need for rhogam due to Rh negative mother: Dheeraj Rawls is a 32 y/o female who is PPD #1 following delivery at 40w1d. -Meeting all milestones -Vital signs reviewed and WNL -O-/GBS negative/Rubella immune (needs Rhogam) -Follow up in 6 weeks for appointment -Continue routine care -Plan for d/c today Admission and Anticipated Discharge Date Admission Date: October 18, 2022 Supervising Physician Co-Signing Physician Notes Resident Physician Supervision Note: I interviewed and examined the patient. Discussed with Dr. Hawk and agree with findings and plan as documented in the note. Any exceptions or clarifications are listed here: [ ] Documented By: Mora Galan MD, FACOG Subjective Sinai is a 32 y/o female who is PPD #1 following delivery at 40w1d. She reports feeling well overall this morning. Some abdominal cramping but pain well managed on analgesics. Voiding without issue. Tolerating meals overnight and able to ambulate some. Has some persistent lochia with some improvement this morning. Currently formula feeding. Review of Systems Constitutional: no fever, no chills and no sweats Respiratory: no cough, no dyspnea and no wheezing Cardiovascular: no chest pain, no palpitations and no calf pain Genitourinary: no dysuria Neurologic: no headache(s) Physical Exam Constitutional: WD/WN, vitals as above no acute distress Respiratory: no respiratory distress Auscultation: lungs clear to auscultation bilaterally; no rales, no rhonchi and no wheezes Cardiovascular: RRR, no murmur, no edema Extremities: no calf tenderness and no edema Negative Ale's sign bilaterally. Gastrointestinal (Abdomen): Inspection/Auscultation: normal bowel sounds Skin: no rashes, warm and dry Genitourinary: Uterine fundus firm, palpable below the umbilicus. Results & Data Vital Signs (Past 12 Hours) Vital Signs Temp Pulse Resp BP Pulse Ox O2 Del Method 10/19/22 04:30 36.6 C 75 16 143/89 H 99 Room Air 10/18/22 23:25 36.6 C 83 16 134/83 97 Room Air 10/18/22 19:45 36.8 C 90 18 113/73 97 Room Air Resident Activity Tracking Resident Involvement: Resident Care Provided Care Provided: OB Delivery
[2022-10-19 06:45] LABS: Hematocrit (blood only) 29.5 % (37.0-47.0); Hemoglobin 9.2 g/dl (12.0-16.0); Mean Corpuscular Hemoglobin 24.4 pg (25.0-34.0); Mean Corpuscular Hgb Conc 31.2 g/dL (32.0-36.0); Mean Corpuscular Volume 78.2 fL (80.0-100.0); Mean Platelet Volume 10.6 fL (9.4-12.4); Platelet Count 200 K/uL (130-400); RDW Coefficient of Variation 15.3 % (11.5-14.5); RDW Standard Deviation 42.7 fL (36.4-46.3); Red Blood Count 3.77 M/uL (4.20-5.40); White Blood Count 7.97 K/ul (4.8-10.8)
[2022-10-19] MEDS: IBUPROFEN 600 MG TAB PO PRN ×2 (07:13→11:17)
[2022-10-19] MEDS ORDERED: PRENATAL VITAMIN 1 TAB PO SCH (08:00)
[2022-10-19] MEDS: DOCUSATE SODIUM 100 MG CAP PO SCH (08:04)
[2022-10-19] MEDS ORDERED: ESCITALOPRAM OXALATE 20 MG TAB PO SCH (09:00)
--- NOTE | 2022-10-20 12:06 | Delivery Summary ---
Vaginal Delivery Summary Date of Service October 18, 2022 Vaginal Delivery Summary DIAGNOSES: 1. Sow intrauterine at 40w1d gestation. 2. Spontaneous onset of labor. 3. Group B Streptococcus Neg. PROCEDURE: Spontaneous vaginal delivery without laceration. SURGEON: Mora Galan MD. CLOTH COLORS EXAMINER: None. ESTIMATED BLOOD LOSS: 250 mL. COMPLICATIONS: None. PLACENTA: Spontaneous and intact with a 3-vessel cord. DISPOSITION: Stable to labor and delivery. DESCRIPTION: The patient pushed well and brought the head to in DOA position. The 's head was allowed to deliver with contraction force and no further active pushing, with the perineum protected during this time. The shoulders and body delivered without any difficulty, and the was placed on the maternal abdomen. It was vigorous and moving all extremities, and making respiratory efforts. The cord was doubly clamped by the MD and then cut by the FOB. The placenta delivered spontaneously and was noted to be intact and with a 3VC. The cervix, vagina and perineum were examined and were found to be without defect requiring repair. The fundus was firm and lochia minimal immediately after delivery. [facility] Vaginal Delivery Charge Vaginal Delivery Codes: 08586 global code for the antepartum, delivery, and post-
== END 2022-10-19 13:36 | disposition home or self-care (01) | DRG 807 ==
LOC: OPB 07:15 → 4S1 07:42 → 4E2 16:00